=== PATIENT | male | born 1960 | race African-American/Black ===

== ENCOUNTER 2022-01-11 10:49 | Outpatient (CLI) | payer MEDICARE, OTHER ==
[2022-01-11 12:15] LABS: Hemoglobin 14.3 g/dL (13.5-17.5); Mean Corpuscular Hemoglobin 28.6 pg (27.0-33.0); Mean Corpuscular Volume 86.6 fl (81.2-95.1); Mean Platelet Volume 11.4 fl (7.4-10.4); Platelet Count 222 10x3/uL (150-450); RBC Distribution Width 13.2 % (11.5-14.5); White Blood Cell (WBC) Count 8.4 10x3/uL (3.5-10.5)
[2022-01-11 12:31] LABS: Anion Gap 13 mmol/L (10-20); BUN (Urea Nitrogen) 13 mg/dL (8.4-25.7); Calc. Creatinine Clearance 0 mL/min (70-130); Calcium 9.9 mg/dL (7.8-10.44); Carbon Dioxide 29 mmol/L (22-29); Chloride 103 mmol/L (98-107); Glucose 138 mg/dL (70-105); Potassium 4.5 mmol/L (3.5-5.1); Sodium 140 mmol/L (136-145)
[2022-01-11 20:35] LABS: SARS-CoV-2 PCR by NAA Not Detected (NotDetected)
== END 2022-01-11 10:50 | disposition home or self-care (01) ==
LOC: LABBT 10:49
PROVIDERS: ATTEND Neurological Surgery
DX: Z01.818 Encounter for other preprocedural examination (principal); Z20.822 Contact with and (suspected) exposure to COVID-19
CPT/HCPCS: 80048; 85027; 93005; U0003; U0005; 93010

== ENCOUNTER 2022-01-11 11:00 | Inpatient (IN) | payer MEDICARE, OTHER ==
[2022-01-12 14:04] VITALS: BMI 31.5
[2022-01-16] MEDS ORDERED: Levofloxacin 500 mg/D5W 100 ml Premix Bag ONE (09:04)
[2022-01-16] MEDS ORDERED: Clindamycin/D5W 900 mg/50 ml Premix Bag ONE (10:28)
[2022-01-16] MEDS ORDERED: fentaNYL Citrate/PF 100 MCG/2 ML SYRINGE ONE (10:29)
[2022-01-16] MEDS ORDERED: Ondansetron PF 4 MG/2 ML Vial ONE (10:46)
[2022-01-16] MEDS ORDERED: Lidocaine 1% PF 5 ML VIAL ONE (10:46)
[2022-01-16] MEDS ORDERED: Rocuronium Bromide 10 MG/ML (10ML VIAL) ONE (10:46)
[2022-01-16] MEDS ORDERED: Dexamethasone 20 MG/5 ML VIAL ONE (10:46)
[2022-01-16] MEDS ORDERED: PROPOFOL 200 MG/20 ML VIAL ONE (10:46)
[2022-01-16] MEDS ORDERED: PHENYLEPHRINE-NS 100 MCG/ML 10 ML SYRINGE ONE (10:46)
[2022-01-16] MEDS ORDERED: Promethazine HCl 25 MG/ML VIAL IVPB PRN (11:54)
[2022-01-16] MEDS ORDERED: Ondansetron HCl/PF 4 MG/2 ML Vial IVP PRN (11:54)
[2022-01-16] MEDS ORDERED: Promethazine HCl 25 MG/ML VIAL IM PRN ×2 (11:54→14:00)
[2022-01-16] MEDS ORDERED: SUGAMMADEX SODIUM 200 MG/2 ML VIAL ONE (12:01)
[2022-01-16] MEDS ORDERED: Fentanyl 100 MCG/2 ML VIAL ONE (12:12)
[2022-01-16] MEDS ORDERED: Tamsulosin HCl 0.4 MG CAP ONE (12:38)
[2022-01-16] MEDS ORDERED: Fluticasone Propionate Nasal Spray 16 gm Bottle NASAL PRN (13:30)
[2022-01-16] MEDS ORDERED: Mag-Al 1200 mg/1200 mg/30 ML UDCUP PO PRN (14:00)
[2022-01-16] MEDS ORDERED: Ondansetron PF 4 MG/2 ML Vial IM PRN (14:00)
[2022-01-16] MEDS ORDERED: diphenhydrAMINE 50 MG/ML VIAL IVP PRN (14:00)
[2022-01-16] MEDS ORDERED: Morphine 4 MG/ML VIAL SLOW IVP PRN (14:00)
[2022-01-16] MEDS ORDERED: HYDROcodone/Acetaminophen 10/325 mg Tablet PO PRN (14:00)
[2022-01-16] MEDS ORDERED: diphenhydrAMINE 25 MG CAP PO PRN (14:00)
[2022-01-16] MEDS ORDERED: Cyclobenzaprine 10 MG TAB PO PRN (14:00)
[2022-01-16] MEDS ORDERED: traMADol HCl 50 MG TAB PO PRN ×2 (14:00)
[2022-01-16] MEDS ORDERED: Promethazine HCl 12.5 MG SUPP PR PRN (14:00)
[2022-01-16] MEDS ORDERED: Milk Of Magnesia 30 ML UDCUP PO PRN (14:00)
[2022-01-16] MEDS ORDERED: Morphine 2 MG/ML VIAL SLOW IVP PRN (14:00)
[2022-01-16] MEDS ORDERED: Promethazine 25 MG TAB PO PRN (14:00)
[2022-01-16] MEDS: HYDROcodone/Acetaminophen 10/325 mg Tablet PO PRN ×3 (14:09→22:54)
[2022-01-16] MEDS: Sodium Chloride 0.9% 1,000 ML IV SCH (14:12)
[2022-01-16] MEDS: Baclofen 10 MG TAB PO SCH ×2 (14:49→20:12)
[2022-01-16] MEDS ORDERED: HumaLOG 300 UNITS/3 ML VIAL SC PRN ×2 (15:46)
[2022-01-16] MEDS ORDERED: Dextrose 50% Abboject 50 ML SYRINGE SLOW IVP PRN (15:46)
[2022-01-16] MEDS ORDERED: Dextrose 5% in Water 1,000 ML IV PRN (15:46)
[2022-01-16] MEDS: metFORMIN 500 MG TAB PO SCH (18:00)
[2022-01-16] MEDS: Clindamycin/D5W 900 MG in Premix Bag 1 BAG IVPB SCH (18:01)
[2022-01-16] MEDS: DULoxetine 60 MG CAP PO SCH (20:12)
[2022-01-16] MEDS ORDERED: Atorvastatin Calcium 20 MG TAB PO SCH (21:00)
[2022-01-17] MEDS: Clindamycin/D5W 900 MG in Premix Bag 1 BAG IVPB SCH ×2 (01:27→09:33)
[2022-01-17] MEDS: Sodium Chloride 0.9% 1,000 ML IV SCH ×2 (05:05→16:20)
[2022-01-17] MEDS: HYDROcodone/Acetaminophen 10/325 mg Tablet PO PRN ×3 (05:17→13:59)
[2022-01-17] MEDS ORDERED: Tamsulosin HCl 0.4 MG CAP PO SCH (06:00)
[2022-01-17 06:56] LABS: #Lymphocytes 1.2 thou/uL (1.20-3.40); #Monocytes 1.3 thou/uL (0.11-0.59); #Neutrophils 15.5 thou/uL (1.40-6.50); %Basophils 0.1 % (0.0-1.0); %Lymphocytes 6.7 % (21.0-51.0); %Neutrophils 86.2 % (42.0-75.0); Hemoglobin 13.3 g/dL (14.0-18.0); Mean Corpuscular HGB CONC 33.3 g/dL (32.0-36.0); Mean Corpuscular Hemoglobin 29.8 pg (27.0-31.0); Mean Corpuscular Volume 89.6 fL (78.0-98.0); Mean Platelet Volume 8.5 fL (7.4-10.4); Platelet Count 180 thou/uL (130-400); RBC Distribution Width 12.2 % (11.5-14.5); Red Blood Cell (RBC) Count 4.47 mill/uL (4.70-6.10)
[2022-01-17 07:30] LABS: Anion Gap 12 mmol/L (10-20); BUN (Urea Nitrogen) 15 mg/dL (8.4-25.7); Calc. Creatinine Clearance 91 mL/min (70-130); Calcium 8.9 mg/dL (7.8-10.44); Carbon Dioxide 25 mmol/L (22-29); Chloride 104 mmol/L (98-107); Glucose 132 mg/dL (70-105); Potassium 4.3 mmol/L (3.5-5.1); Sodium 137 mmol/L (136-145)
[2022-01-17] MEDS: DULoxetine 60 MG CAP PO SCH ×2 (07:45→20:06)
[2022-01-17] MEDS: Baclofen 10 MG TAB PO SCH ×3 (07:46→20:06)
[2022-01-17] MEDS: metFORMIN 500 MG TAB PO SCH ×2 (07:46→17:53)
[2022-01-17] MEDS ORDERED: Amlodipine 5 MG TAB PO SCH (09:00)
[2022-01-17] MEDS ORDERED: Lisinopril 10 MG TAB PO SCH (09:00)
[2022-01-17] MEDS ORDERED: Loratadine 10 MG TAB PO SCH (09:00)
[2022-01-17] MEDS ORDERED: Mag-Al 1200 mg/1200 mg/30 ML UDCUP PO PRN (17:19)
[2022-01-17] MEDS ORDERED: Cyclobenzaprine 10 MG TAB PO PRN (17:20)
[2022-01-17] MEDS ORDERED: Dextrose 50% Abboject 50 ML SYRINGE SLOW IVP PRN (17:20)
[2022-01-17] MEDS ORDERED: diphenhydrAMINE 50 MG/ML VIAL IVP PRN (17:21)
[2022-01-17] MEDS ORDERED: diphenhydrAMINE 25 MG CAP PO PRN (17:21)
[2022-01-17] MEDS ORDERED: Fluticasone Propionate Nasal Spray 16 gm Bottle NASAL PRN (17:21)
[2022-01-17] MEDS ORDERED: Dextrose 5% in Water 1,000 ML IV PRN (17:21)
[2022-01-17] MEDS ORDERED: HYDROcodone/Acetaminophen 10/325 mg Tablet PO PRN ×2 (17:22→17:23)
[2022-01-17] MEDS ORDERED: HumaLOG 300 UNITS/3 ML VIAL SC PRN ×2 (17:22)
[2022-01-17] MEDS ORDERED: Milk Of Magnesia 30 ML UDCUP PO PRN (17:23)
[2022-01-17] MEDS ORDERED: Morphine 4 MG/ML VIAL SLOW IVP PRN (17:24)
[2022-01-17] MEDS ORDERED: Morphine 2 MG/ML VIAL SLOW IVP PRN (17:24)
[2022-01-17] MEDS ORDERED: Ondansetron PF 4 MG/2 ML Vial IM PRN (17:24)
[2022-01-17] MEDS ORDERED: Promethazine 25 MG TAB PO PRN (17:25)
[2022-01-17] MEDS ORDERED: Promethazine HCl 12.5 MG SUPP PR PRN (17:25)
[2022-01-17] MEDS ORDERED: Promethazine HCl 25 MG/ML VIAL IM PRN (17:25)
[2022-01-17] MEDS ORDERED: traMADol HCl 50 MG TAB PO PRN ×2 (17:27)
[2022-01-17] MEDS ORDERED: metFORMIN 500 MG TAB PO SCH (17:30)
[2022-01-17] MEDS ORDERED: Sodium Chloride 0.9% 1,000 ML IV SCH (17:30)
[2022-01-17] MEDS ORDERED: Clindamycin/D5W 900 MG in Premix Bag 1 BAG IVPB SCH (18:00)
[2022-01-17] MEDS ORDERED: Atorvastatin Calcium 20 MG TAB PO SCH (21:00)
[2022-01-18] MEDS ORDERED: Tamsulosin HCl 0.4 MG CAP PO SCH (06:00)
[2022-01-18 07:33] LABS: Troponin I Less than 0.010 ng/mL (< 0.028)
[2022-01-18] MEDS ORDERED: metFORMIN 500 MG TAB PO SCH (08:00)
[2022-01-18] MEDS ORDERED: Amlodipine 5 MG TAB PO SCH (09:00)
[2022-01-18] MEDS ORDERED: Lisinopril 10 MG TAB PO SCH (09:00)
[2022-01-18] MEDS ORDERED: Loratadine 10 MG TAB PO SCH (09:00)
[2022-01-18] MEDS: Baclofen 10 MG TAB PO SCH ×2 (09:07→15:51)
[2022-01-18] MEDS: DULoxetine 60 MG CAP PO SCH (09:08)
[2022-01-18 10:09] LABS: #Eosinphils 0.1 thou/uL (0.0-0.7); #Lymphocytes 2.3 thou/uL (1.20-3.40); #Neutrophils 11.6 thou/uL (1.40-6.50); %Basophils 0.3 % (0.0-1.0); %Eosinophils 0.4 % (0.0-10.0); %Lymphocytes 15.3 % (21.0-51.0); %Monocytes 6.6 % (0.0-10.0); %Neutrophils 77.4 % (42.0-75.0); Hemoglobin 13.8 g/dL (14.0-18.0); Mean Corpuscular HGB CONC 33.1 g/dL (32.0-36.0); Mean Corpuscular Hemoglobin 29.2 pg (27.0-31.0); Mean Corpuscular Volume 88.2 fL (78.0-98.0); Mean Platelet Volume 8.1 fL (7.4-10.4); Platelet Count 192 thou/uL (130-400); RBC Distribution Width 12.4 % (11.5-14.5); Red Blood Cell (RBC) Count 4.72 mill/uL (4.70-6.10)
[2022-01-18 10:26] LABS: Anion Gap 12 mmol/L (10-20); BUN (Urea Nitrogen) 11 mg/dL (8.4-25.7); Calc. Creatinine Clearance 94 mL/min (70-130); Calcium 9.2 mg/dL (7.8-10.44); Carbon Dioxide 28 mmol/L (22-29); Chloride 102 mmol/L (98-107); Glucose 111 mg/dL (70-105); Potassium 3.9 mmol/L (3.5-5.1); Sodium 138 mmol/L (136-145)
[2022-01-18 10:30] LABS: Troponin I Less than 0.010 ng/mL (< 0.028)
[2022-01-18] MEDS ORDERED: ADENOSINE 60 MG/20 ML VIAL ONE (12:11)
[2022-01-18 15:42] VITALS: BP 124/69; TEMP 97.6
== END 2022-01-18 16:15 | disposition home or self-care (01) | DRG 460 ==
LOC: SURG A 01-16 08:00 → 2SW 01-17 16:24 → UNDODISIN 01-17 16:45
PROVIDERS: ADMIT Neurological Surgery; ATTEND Neurological Surgery
PROC: 0SG0071 Fusion of Lumbar Vertebral Joint with Autologous Tissue Substitute, Posterior Approach, Posterior Column, Open Approach (ICD-10-PCS; principal; 2022-01-16)
PROC: 0QP004Z Removal of Internal Fixation Device from Lumbar Vertebra, Open Approach (ICD-10-PCS; 2022-01-16)
DX: M48.061 Spinal stenosis, lumbar region without neurogenic claudication (principal); N17.9 Acute kidney failure, unspecified; Z20.822 Contact with and (suspected) exposure to COVID-19; N40.0 Benign prostatic hyperplasia without lower urinary tract symptoms; E78.5 Hyperlipidemia, unspecified; E11.9 Type 2 diabetes mellitus without complications; Z96.643 Presence of artificial hip joint, bilateral; M51.16 Intervertebral disc disorders with radiculopathy, lumbar region; I10 Essential (primary) hypertension; R00.1 Bradycardia, unspecified; R55 Syncope and collapse; Z88.5 Allergy status to narcotic agent; Z88.8 Allergy status to other drugs, medicaments and biological substances; Z79.899 Other long term (current) drug therapy; Z79.82 Long term (current) use of aspirin; Z96.82 Presence of neurostimulator; Z98.890 Other specified postprocedural states; Z98.1 Arthrodesis status; Z88.6 Allergy status to analgesic agent
CPT/HCPCS: 36415; 36416; 76000; 78452; 80048; 84484; 85025; 93005; 93010; 93017; 93306; 93880; A9500; C1713; C1768; J0153; J1100; J1956; J2270; J2405; J2704; J3010; J3370; J3490; J7050

== ENCOUNTER 2022-02-09 12:36 | Outpatient (CLI) | payer MEDICARE, OTHER | END 2022-02-09 12:37 | disposition home or self-care (01) | LOC: TBSIIMAG 12:36 | PROVIDERS: ATTEND Neurological Surgery | DX: M47.26 Other spondylosis with radiculopathy, lumbar region (principal); Z98.890 Other specified postprocedural states | CPT/HCPCS: 72100 ==